=== PATIENT | male | born 1955 | race Caucasian/White ===

== ENCOUNTER 2019-05-17 13:46 | Observation (INO) ==
[2019-05-17 14:40] LABS: Basophils # 0.1 10*3/uL (0.0-0.2); Basophils % 0.7 % (0.0-0.8); Eosinophils # 0.3 10*3/uL (0.0-0.87); Eosinophils % 2.7 % (0.00-10.9); Hematocrit 41.8 VOL% (42.0-52.0); Hemoglobin 13.8 GM/DL (14.0-18.0); Immature Granulocytes % 0.4 %; Immature Granulocytes Absolute 0.04 #; Lymphocytes # 1.5 10*3/uL (1.4-4.0); Lymphocytes % 14.8 % (21.2-54.2); Mean Corpuscular Volume 83.4 FL (87-102); Mean Platelet Volume 9.3 FL (9.6-12.0); Monocytes % 10.3 % (1.7-12.7); Neutrophils % 71.1 % (38.7-73.9); Platelet Count 323 T/CUMM (130-400); Red Blood Count 5.01 MC/CUMM (3.8-5.5); Red Cell Distribution Width 15.1 % (9.3-17.3); White Blood Count 10.1 T/CUMM (4-12)
[2019-05-17 15:01] LABS: Bilirubin,Total 0.7 MG/DL (0.2-1.0); Calcium 9.2 MG/DL (8.5-10.1); Osmolality,Calculated 280.7 MOS/KG (273-304); Total Protein 6.9 G/DL (6.4-8.3)
[2019-05-17] MEDS ORDERED: cefTRIAXone 1,000 MG in SODIUM CHLORIDE 0.9% 100 ML IV STA (15:13)
[2019-05-17] MEDS ORDERED: FUROSEMIDE 40 MG/4 ML VIAL IV STA (16:53)
[2019-05-17] MEDS ORDERED: MAGNESIUM SULF RIDER 4 GM in PREMIX 1 EACH IV PRN (16:57)
[2019-05-17] MEDS ORDERED: MAGNESIUM SULF RIDER 2 GM in PREMIX 1 EACH IV PRN (16:57)
[2019-05-17] MEDS ORDERED: ALBUTEROL 2.5 MG/3 ML NEB RESP TX PRN (17:11)
[2019-05-17] MEDS: DIGOXIN 0.125 MG TABLET PO SCH (17:30)
[2019-05-17] MEDS ORDERED: AZTREONAM 2,000 MG in SODIUM CHLORIDE 0.9% 100 ML IV SCH (17:30)
[2019-05-17] MEDS ORDERED: INFLUENZA VIRUS VACCINE 0.5 ML SYRINGE IM ONE (18:27)
[2019-05-17] MEDS ORDERED: PNEUMOCOCCAL VACCINE (13 VALENT) 0.5 ML SYRINGE IM ONE (18:27)
[2019-05-17] MEDS: SPIRONOLACTONE 25 MG TABLET PO SCH (19:00)
[2019-05-17] MEDS: ATORVASTATIN 80 MG TABLET PO SCH (19:00)
[2019-05-17] MEDS: methylPREDNISolone SOD SUC 40 MG/1 ML VIAL IV SCH (19:01)
[2019-05-17] MEDS: LEVOFLOXACIN INJ 750 MG in PREMIX 1 EACH IV SCH (19:01)
[2019-05-17 19:38] LABS: Apearance,Urine CLEAR (Clear); Bilirubin,Urine Negative (Negative); Blood, Urine Negative (Negative); Glucose,Urine (UA) Negative (Negative); Ketones,Urine Negative (Negative); Mucus,Urine Occasional /LPF (Occasional); Nitrite,Urine Negative (Negative); Protein,Urine Negative; RBC,Urine <1 /HPF (0-4); Urine Color Colorless (Yellow); Urine Specific Gravity 1.009 (1.001-1.035); Urine Urobilinogen < 2.0 EU/DL (0.2-1.0); WBC,Urine <1 /HPF (0-6)
[2019-05-17] MEDS: ALBUTEROL/IPRATROPIUM 3 ML NEB RESP TX SCH (20:53)
[2019-05-17] MEDS: LISINOPRIL 5 MG TABLET PO SCH (20:59)
[2019-05-17] MEDS ORDERED: CYCLOBENZAPRINE 10 MG TABLET PO PRN (23:22)
[2019-05-18] MEDS: ALBUTEROL/IPRATROPIUM 3 ML NEB RESP TX SCH ×4 (00:40→20:27)
[2019-05-18 00:52] LABS: Osmolality,Calculated 280.7 MOS/KG (273-304)
[2019-05-18] MEDS: methylPREDNISolone SOD SUC 40 MG/1 ML VIAL IV SCH ×4 (02:50→19:57)
[2019-05-18 03:14] LABS: Basophils % 0.2 % (0.0-0.8); Hematocrit 38.6 VOL% (42.0-52.0); Hemoglobin 12.7 GM/DL (14.0-18.0); Immature Granulocytes % 0.2 %; Immature Granulocytes Absolute 0.02 #; Lymphocytes # 0.3 10*3/uL (1.4-4.0); Lymphocytes % 3.6 % (21.2-54.2); Mean Corpuscular HGB Conc 32.9 GM/DL (32-36); Mean Corpuscular Volume 83.7 FL (87-102); Mean Platelet Volume 9.6 FL (9.6-12.0); Monocytes % 1.2 % (1.7-12.7); Neutrophils % 94.8 % (38.7-73.9); Platelet Count 316 T/CUMM (130-400); Red Blood Count 4.61 MC/CUMM (3.8-5.5); White Blood Count 8.3 T/CUMM (4-12)
[2019-05-18 03:36] LABS: Calcium 9.4 MG/DL (8.5-10.1); Thyroid Stimulating Hormone 0.708 uIU/ml (0.358-3.74)
[2019-05-18 03:43] LABS: Anisocytosis Slight; Hypochromasia Slight; Lymphocytes 4 % (20-55); Microcytosis Slight; Platelet Estimate Normal; Segmented Neutrophils 95 % (50-85); Total Cells Counted 100
[2019-05-18] MEDS: POTASSIUM CHLORIDE RIDER 10 MEQ in PREMIX 1 EACH IV PRN ×2 (04:35→07:26)
[2019-05-18 09:00] LABS: INR 1.1; PT Patient Result 12.3 SECS (9.6-12.2)
[2019-05-18 11:49] LABS: Basophils,Pleural Fluid 1 %; Eosinophils,Pleural Fluid 35 %; Lymphocytes,Pleural Fluid 22 %; Monocytes,Pleural Fluid 31 %; Neutrophils,Pleural Fluid 9 %
[2019-05-18] MEDS: ASPIRIN CHEW 81 MG TABLET PO SCH (11:51)
[2019-05-18 11:52] LABS: RBC,Pleural Fluid 6833 T/CUMM
[2019-05-18] MEDS: DIGOXIN 0.125 MG TABLET PO SCH (11:52)
[2019-05-18] MEDS: ATORVASTATIN 80 MG TABLET PO SCH (11:52)
[2019-05-18] MEDS: SPIRONOLACTONE 25 MG TABLET PO SCH (11:52)
[2019-05-18 11:53] LABS: Total Protein,Pleural Fluid 3.6 G/DL
[2019-05-18] MEDS: LISINOPRIL 5 MG TABLET PO SCH ×2 (11:53→20:38)
[2019-05-18] MEDS: FUROSEMIDE 40 MG/4 ML VIAL IV SCH ×2 (11:54→16:38)
[2019-05-18] MEDS: LEVOFLOXACIN INJ 750 MG in PREMIX 1 EACH IV SCH (17:26)
[2019-05-18 18:44] LABS: INR 1.1; PT Patient Result 11.8 SECS (9.6-12.2)
[2019-05-19] MEDS: ALBUTEROL/IPRATROPIUM 3 ML NEB RESP TX SCH ×2 (01:01→07:09)
[2019-05-19] MEDS: methylPREDNISolone SOD SUC 40 MG/1 ML VIAL IV SCH ×2 (02:16→09:47)
[2019-05-19 04:23] LABS: Basophils % 0.1 % (0.0-0.8); Hematocrit 39.5 VOL% (42.0-52.0); Hemoglobin 12.7 GM/DL (14.0-18.0); Immature Granulocytes % 0.7 %; Immature Granulocytes Absolute 0.13 #; Lymphocytes # 0.5 10*3/uL (1.4-4.0); Lymphocytes % 2.6 % (21.2-54.2); Mean Corpuscular HGB Conc 32.2 GM/DL (32-36); Mean Corpuscular Volume 85.7 FL (87-102); Mean Platelet Volume 9.9 FL (9.6-12.0); Monocytes % 3.2 % (1.7-12.7); Neutrophils % 93.4 % (38.7-73.9); Platelet Count 331 T/CUMM (130-400); Red Blood Count 4.61 MC/CUMM (3.8-5.5); Red Cell Distribution Width 15.3 % (9.3-17.3); White Blood Count 19.2 T/CUMM (4-12)
[2019-05-19 04:43] LABS: Calcium 9.2 MG/DL (8.5-10.1); Osmolality,Calculated 281.5 MOS/KG (273-304)
[2019-05-19 04:55] LABS: Risk Ratio 3.06
[2019-05-19 05:06] LABS: Anisocytosis 1+
[2019-05-19 06:21] LABS: Hypochromasia Slight; Lymphocytes 1 % (20-55); Platelet Estimate Adequate; Segmented Neutrophils 96 % (50-85); Total Cells Counted 100
[2019-05-19] MEDS: FUROSEMIDE 40 MG/4 ML VIAL IV SCH (08:43)
[2019-05-19] MEDS: ASPIRIN CHEW 81 MG TABLET PO SCH (09:40)
[2019-05-19] MEDS: ATORVASTATIN 80 MG TABLET PO SCH (09:40)
[2019-05-19] MEDS: DIGOXIN 0.125 MG TABLET PO SCH (09:40)
[2019-05-19] MEDS: SPIRONOLACTONE 25 MG TABLET PO SCH (09:41)
[2019-05-19] MEDS: LISINOPRIL 5 MG TABLET PO SCH (10:28)
[2019-05-19 12:32] VITALS: BP 130/72
== END 2019-05-19 14:21 | disposition home or self-care (01) ==
LOC: N.ED 13:46 → N.EDINP 13:46 → SUATTDRO 16:54 → N.2W 18:06
PROVIDERS: ADMIT Internal Medicine; ATTEND Internal Medicine Cardiovascular Disease